=== PATIENT | male | born 1975 | race Caucasian/White ===

== ENCOUNTER 2023-07-21 11:47 | Emergency (ER) | payer MEDICAID ==
[~2023-07-21] VITALS: Ht 175.3 cm; Wt 80.0 kg
[2023-07-21 11:49] VITALS: O2SAT 100
[2023-07-21] MEDS ORDERED: ONDANSETRON HCL 4MG/2ML INJ IV STA (12:59)
[2023-07-21] MEDS ORDERED: MORPHINE SULFATE 4 MG/ML CPJ (NOT FOR IM USE) IV STA (12:59)
[2023-07-21] MEDS ORDERED: SODIUM CHLORIDE 0.9% 1,000 ML IV ONE (13:00)
[2023-07-21 13:50] LABS: BASOPHILS % 0.2 % (0.0-2.0); EOSINOPHILS % 2.5 % (0.0-5.0); HEMATOCRIT. 43.6 % (42.0-52.0); HEMOGLOBIN. 14.1 g/dL (14.0-18.0); LYMPHOCYTES % 29.5 % (20.0-50.0); MEAN CORPUSCULAR HEMOGLOBIN 31.6 pg (28.0-32.0); MEAN CORPUSCULAR HGB CONC 32.4 g/dL (31.0-37.0); MEAN CORPUSCULAR VOLUME 97.6 fL (80.0-94.0); MEAN PLATELET VOLUME 7.2 fl (7.4-10.4); MONOCYTES % 9.1 % (2.0-8.0); NEUTROPHILS % 58.7 % (40.0-76.0); PLATELET 181 x1000/uL (130-400); RED BLOOD CELL COUNT 4.47 mill/uL (4.7-6.1); RED CELL DISTRIBUTION WIDTH 14.8 % (11.6-14.6); WHITE BLOOD COUNT 6.3 x1000/uL (4.5-11.0)
[2023-07-21 14:10] LABS: ALANINE AMINOTRANSFERASE 336 IU/L (10-49); ALBUMIN 4.1 g/dL (3.2-4.8); ASPARTATE AMINOTRANSFERASE 143 IU/L (<34); BILIRUBIN TOTAL 0.5 mg/dL (0.1-1.0); CALCIUM 9.5 mg/dL (8.7-10.4); CARBON DIOXIDE 20 mEq/L (21-32); CHLORIDE 107 mEq/L (98-107); CREATININE 0.9 mg/dL (0.6-1.3); GLUCOSE 84 mg/dL (70-105); POTASSIUM 3.9 mEq/L (3.5-5.1); PROTEIN TOTAL 8.5 g/dL (6.0-8.3); SODIUM 137 mEq/L (136-145); UREA NITROGEN BLOOD 19 mg/dL (9-23)
[2023-07-21 14:12] LABS: TROPONIN I HIGH SENSITIVITY < 4 ng/L (3.0-53)
[2023-07-21] MEDS ORDERED: KETOROLAC 60MG/2ML VIAL IM ONE (15:00)
[2023-07-21] MEDS ORDERED: IBUP-2028 MT (16:04)
[2023-07-21] MEDS ORDERED: ONDA4TAB50 MT (16:04)
[2023-07-21] MEDS ORDERED: MORPHINE SULFATE 4 MG/ML CPJ (NOT FOR IM USE) IV NR (17:30)
[2023-07-21] MEDS ORDERED: ONDANSETRON HCL 4MG/2ML INJ IV NR (17:30)
[2023-07-21] MEDS ORDERED: KETOROLAC 30MG/ML VIAL IM NR (17:30)
[2023-07-21 18:47] VITALS: BP 122/81; PULSE 68; RESP 14; TEMP 97.7
== END 2023-07-21 18:53 | disposition home or self-care (01) ==
LOC: ER 12:29
DX: R10.9 Unspecified abdominal pain (principal); J45.909 Unspecified asthma, uncomplicated; Z87.442 Personal history of urinary calculi
CPT/HCPCS: 99285; 74176; 71045; 80053; 83690; 85025; 84484; 36415; 93005; 96372; J1885; J2405; J2270; J7030

== ENCOUNTER 2023-09-10 09:03 | Emergency (ER) | payer OTHER ==
[~2023-09-10] VITALS: Ht 170.2 cm; Wt 100.0 kg
[~2023-09-10 09:03] MED LIST: AMOX1TAB16 MT; DOXY100C5 MT; IBUP-2028 MT; ONDA4TAB50 MT
[2023-09-10 09:05] VITALS: TEMP 99.4; O2SAT 99
[2023-09-10 09:45] LABS: BASOPHILS % 0.1 % (0.0-2.0); EOSINOPHILS % 1.7 % (0.0-5.0); HEMATOCRIT. 39.2 % (42.0-52.0); HEMOGLOBIN. 13.4 g/dL (14.0-18.0); LYMPHOCYTES % 10.4 % (20.0-50.0); MEAN CORPUSCULAR HEMOGLOBIN 32.1 pg (28.0-32.0); MEAN CORPUSCULAR HGB CONC 34.2 g/dL (31.0-37.0); MEAN CORPUSCULAR VOLUME 93.8 fL (80.0-94.0); MEAN PLATELET VOLUME 6.8 fl (7.4-10.4); MONOCYTES % 4.6 % (2.0-8.0); NEUTROPHILS % 83.2 % (40.0-76.0); PLATELET 218 x1000/uL (130-400); RED BLOOD CELL COUNT 4.18 mill/uL (4.7-6.1); RED CELL DISTRIBUTION WIDTH 14.8 % (11.6-14.6); WHITE BLOOD COUNT 10.9 x1000/uL (4.5-11.0)
[2023-09-10 10:00] LABS: ALANINE AMINOTRANSFERASE 254 IU/L (10-49); ALBUMIN 4.8 g/dL (3.2-4.8); ASPARTATE AMINOTRANSFERASE 134 IU/L (<34); BILIRUBIN TOTAL 1.4 mg/dL (0.1-1.0); CALCIUM 9.2 mg/dL (8.7-10.4); CARBON DIOXIDE 25 mEq/L (21-32); CHLORIDE 104 mEq/L (98-107); CREATININE 0.9 mg/dL (0.6-1.3); GLUCOSE 106 mg/dL (70-105); POTASSIUM 3.9 mEq/L (3.5-5.1); PROTEIN TOTAL 8.9 g/dL (6.0-8.3); SODIUM 136 mEq/L (136-145); UREA NITROGEN BLOOD 18 mg/dL (9-23)
[2023-09-10 12:41] VITALS: BP 157/89; PULSE 84; RESP 22
[2023-09-10] MEDS: KETOROLAC 30MG/ML VIAL IV STA (12:41)
[2023-09-10] MEDS: SODIUM CHLORIDE 0.9% 1,000 ML IV ONE (12:41)
[2023-09-10] MEDS: ACETAMINOPHEN 325MG TABLET PO STA (12:41)
[2023-09-10 16:57] LABS: CLARITY URINE CLEAR (CLEAR); COLOR URINE YELLOW (YELLOW); GLUCOSE URINE NEGATIVE (NEGATIVE); KETONES URINE TRACE (NEGATIVE); LEUKOCYTE ESTERASE URINE TRACE (NEGATIVE); NITRITE URINE NEGATIVE (NEGATIVE); OCCULT BLOOD URINE NEGATIVE (NEGATIVE); PROTEIN URINE NEGATIVE (NEGATIVE); SPECIFIC GRAVITY URINE 1.016 (1.005-1.030)
[2023-09-10 17:22] LABS: BACTERIA URINE TRACE; RBC URINE 0-2 /hpf (0-2); SQUAMOUS EPITHELIAL CELL URINE RARE /lpf (RARE/1+); WBC URINE 0-2 /hpf (0-2)
[2023-09-10] MEDS ORDERED: IBUP-2029 MT (17:40)
== END 2023-09-10 11:00 | disposition home or self-care (01) ==
LOC: ER 09:15
DX: B34.9 Viral infection, unspecified (principal); K52.9 Noninfective gastroenteritis and colitis, unspecified; J06.9 Acute upper respiratory infection, unspecified; F17.200 Nicotine dependence, unspecified, uncomplicated; J45.909 Unspecified asthma, uncomplicated; Z20.822 Contact with and (suspected) exposure to COVID-19
CPT/HCPCS: 99285; 70450; 96374; 71045; 96361; 87426; 80053; 81003; 83690; 85025; 87804 ×2; 36415; 74176; J1885; J7030

== ENCOUNTER 2023-09-18 07:11 | Inpatient (IN) | payer OTHER ==
[~2023-09-18] VITALS: Ht 177.8 cm; Wt 100.7 kg
[~2023-09-18 07:11] MED LIST changes: +IBUP-2029 MT
[2023-09-18 07:44] LABS: HEMOGLOBIN. 13.2 g/dL (14.0-18.0); MEAN CORPUSCULAR HEMOGLOBIN 31.8 pg (28.0-32.0); MEAN CORPUSCULAR HGB CONC 33.9 g/dL (31.0-37.0); MEAN CORPUSCULAR VOLUME 93.8 fL (80.0-94.0); MEAN PLATELET VOLUME 6.5 fl (7.4-10.4); PLATELET 238 x1000/uL (130-400); RED BLOOD CELL COUNT 4.16 mill/uL (4.7-6.1); RED CELL DISTRIBUTION WIDTH 14.5 % (11.6-14.6); WHITE BLOOD COUNT 11.8 x1000/uL (4.5-11.0)
[2023-09-18 07:47] LABS: DIFFERENTIAL COMMENT 1
[2023-09-18 08:39] LABS: ALANINE AMINOTRANSFERASE 201 IU/L (10-49); ALBUMIN 4.7 g/dL (3.2-4.8); ASPARTATE AMINOTRANSFERASE 115 IU/L (<34); BILIRUBIN TOTAL 0.8 mg/dL (0.1-1.0); CALCIUM 9.5 mg/dL (8.7-10.4); CARBON DIOXIDE 24 mEq/L (21-32); CHLORIDE 106 mEq/L (98-107); CREATININE 1.1 mg/dL (0.6-1.3); GLUCOSE 114 mg/dL (70-105); POTASSIUM 3.7 mEq/L (3.5-5.1); PROTEIN TOTAL 8.8 g/dL (6.0-8.3); SODIUM 136 mEq/L (136-145); UREA NITROGEN BLOOD 23 mg/dL (9-23)
[2023-09-18 09:02] LABS: PLATELET ESTIMATE NORMAL
[2023-09-18] MEDS ORDERED: FUROSEMIDE 40MG/4ML VIAL IV ONE (09:45)
[2023-09-18 10:19] LABS: BASOPHILS % 0.2 % (0.0-2.0); EOSINOPHILS % 0.3 % (0.0-5.0); HEMATOCRIT. 40.4 % (42.0-52.0); HEMOGLOBIN. 13.4 g/dL (14.0-18.0); LYMPHOCYTES % 8.6 % (20.0-50.0); MEAN CORPUSCULAR HEMOGLOBIN 30.9 pg (28.0-32.0); MEAN CORPUSCULAR HGB CONC 33.2 g/dL (31.0-37.0); MEAN PLATELET VOLUME 6.7 fl (7.4-10.4); MONOCYTES % 7.2 % (2.0-8.0); NEUTROPHILS % 83.7 % (40.0-76.0); PLATELET 223 x1000/uL (130-400); PROTHROMBIN TIME 11.1 sec (9.6-11.0); RED BLOOD CELL COUNT 4.34 mill/uL (4.7-6.1); RED CELL DISTRIBUTION WIDTH 14.7 % (11.6-14.6); WHITE BLOOD COUNT 14.6 x1000/uL (4.5-11.0)
[2023-09-18 11:00] LABS: ALANINE AMINOTRANSFERASE 197 IU/L (10-49); ALBUMIN 4.4 g/dL (3.2-4.8); ASPARTATE AMINOTRANSFERASE 112 IU/L (<34); BILIRUBIN TOTAL 0.9 mg/dL (0.1-1.0); CALCIUM 9.2 mg/dL (8.7-10.4); CARBON DIOXIDE 23 mEq/L (21-32); CHLORIDE 104 mEq/L (98-107); CREATININE 1.1 mg/dL (0.6-1.3); GLUCOSE 113 mg/dL (70-105); POTASSIUM 3.8 mEq/L (3.5-5.1); SODIUM 135 mEq/L (136-145); UREA NITROGEN BLOOD 22 mg/dL (9-23)
[2023-09-18 11:04] LABS: TROPONIN I HIGH SENSITIVITY < 4 ng/L (3.0-53)
[2023-09-18] MEDS: SODIUM CHLORIDE 0.9% 1000ML BAG (SEPSIS BOLUS) IV ONE (11:33)
[2023-09-18] MEDS: CEFTRIAXONE 1GM/50ML 50 ML IV ONE (11:33)
[2023-09-18] MEDS: AZITHROMYCIN 500MG/250ML 250 ML IV ONE (12:30)
[2023-09-18] MEDS: KETOROLAC 30MG/ML VIAL IV ONE (12:34)
[2023-09-18 13:00] VITALS: BP 140/73; PULSE 127; RESP 16; TEMP 97
[2023-09-18 13:01] LABS: CLARITY URINE CLEAR (CLEAR); COLOR URINE DARK YELLOW (YELLOW); GLUCOSE URINE NEGATIVE (NEGATIVE); KETONES URINE TRACE (NEGATIVE); LEUKOCYTE ESTERASE URINE NEGATIVE (NEGATIVE); NITRITE URINE NEGATIVE (NEGATIVE); OCCULT BLOOD URINE NEGATIVE (NEGATIVE); PROTEIN URINE NEGATIVE (NEGATIVE); SPECIFIC GRAVITY URINE 1.026 (1.005-1.030)
[2023-09-18 13:52] LABS: *AMPHETAMINES SCREEN URINE NEGATIVE (NEGATIVE); *BARBITURATES SCREEN URINE NEGATIVE (NEGATIVE); *BENZODIAZEPINES SCREEN URINE NEGATIVE (NEGATIVE); *COCAINE SCREEN URINE NEGATIVE (NEGATIVE); CANNABINOID URINE SCREEN NEGATIVE (NEGATIVE); ECSTASY MDMA SCREEN URINE NEGATIVE (NEGATIVE); METHADONE URINE SCREEN Neg (NEGATIVE); OPIATES URINE SCREEN NEGATIVE (NEGATIVE); PHENCYCLIDINE URINE SCREEN NEGATIVE (NEGATIVE)
[2023-09-18] MEDS ORDERED: ACETAMINOPHEN 325MG TABLET PO PRN (18:45)
[2023-09-18] MEDS ORDERED: AZITHROMYCIN 250 MG in DEXT 5% WATER 250 ML IV SCH (18:45)
[2023-09-18] MEDS ORDERED: DOCUSATE SODIUM 100MG CAPSULE PO PRN (18:45)
[2023-09-18] MEDS ORDERED: CLONIDINE 0.1MG TABLET PO PRN (18:45)
[2023-09-18 20:00] VITALS: BP 100/58; PULSE 87; RESP 19; TEMP 100.6
[2023-09-18] MEDS: ACETAMINOPHEN 325MG TABLET PO PRN (20:17)
[2023-09-18] MEDS: SODIUM CHLORIDE 0.9% 1,000 ML IV SCH (20:22)
[2023-09-18] MEDS: CEFEPIME 1GM/50ML 50 ML IV SCH (20:22)
[2023-09-18] MEDS ORDERED: CEFEPIME HCL 1000MG VIAL IM SCH (21:00)
[2023-09-18 21:07] LABS: HEPATITIS A AB IGM NEGATIVE (Negative); HEPATITIS B CORE AB IGM NEGATIVE (Negative); HEPATITIS B SURFACE ANTIGEN NEGATIVE (Negative); HEPATITIS C AB REACTIVE (Pos) (Negative)
[2023-09-19] VITALS: BP 102/58; PULSE 74; RESP 19; TEMP 97.9
[2023-09-19 04:00] VITALS: BP 114/66; PULSE 74; RESP 18; TEMP 98.4
[2023-09-19 06:54] LABS: BASOPHILS % 0.2 % (0.0-2.0); EOSINOPHILS % 1.7 % (0.0-5.0); HEMATOCRIT. 35.9 % (42.0-52.0); HEMOGLOBIN. 12.3 g/dL (14.0-18.0); LYMPHOCYTES % 12.1 % (20.0-50.0); MEAN CORPUSCULAR HEMOGLOBIN 31.7 pg (28.0-32.0); MEAN CORPUSCULAR HGB CONC 34.2 g/dL (31.0-37.0); MEAN CORPUSCULAR VOLUME 92.7 fL (80.0-94.0); MEAN PLATELET VOLUME 7.1 fl (7.4-10.4); MONOCYTES % 7.6 % (2.0-8.0); NEUTROPHILS % 78.4 % (40.0-76.0); PLATELET 194 x1000/uL (130-400); RED BLOOD CELL COUNT 3.87 mill/uL (4.7-6.1); RED CELL DISTRIBUTION WIDTH 14.7 % (11.6-14.6); WHITE BLOOD COUNT 11.4 x1000/uL (4.5-11.0)
[2023-09-19 07:40] LABS: ALANINE AMINOTRANSFERASE 156 IU/L (10-49); ASPARTATE AMINOTRANSFERASE 85 IU/L (<34); BILIRUBIN TOTAL 1.3 mg/dL (0.1-1.0); CALCIUM 8.8 mg/dL (8.7-10.4); CARBON DIOXIDE 26 mEq/L (21-32); CHLORIDE 108 mEq/L (98-107); CREATININE 1.1 mg/dL (0.6-1.3); GLUCOSE 88 mg/dL (70-105); POTASSIUM 3.7 mEq/L (3.5-5.1); PROTEIN TOTAL 7.9 g/dL (6.0-8.3); SODIUM 139 mEq/L (136-145); UREA NITROGEN BLOOD 21 mg/dL (9-23)
[2023-09-19 12:00] VITALS: BP 130/69; PULSE 74; RESP 18; TEMP 97.9
[2023-09-19] MEDS: AZITHROMYCIN 500MG/250ML IV SCH (13:00)
[2023-09-19] MEDS: CEFEPIME 2GM/100ML 100 ML IV SCH ×2 (14:19→21:18)
[2023-09-19] MEDS: HYDROCODONE/ACETAMINOPHEN 5/325MG TABLET PO PRN (14:26)
[2023-09-19] MEDS ORDERED: NALOXONE HCL 0.4MG/ML VIAL IV PRN (15:00)
[2023-09-19 16:00] VITALS: BP 119/73; PULSE 82; RESP 18; TEMP 97.5
[2023-09-19 20:00] VITALS: BP 134/73; PULSE 79; RESP 16; TEMP 97.1
[2023-09-19] MEDS: IPRATROPIUM/ALBUTEROL 0.5-3(2.5)MG/3ML NEB HHN SCH (21:51)
[2023-09-19 21:52] VITALS: PULSE 76; RESP 20; O2SAT 99
[2023-09-20] VITALS (11 sets, daily range): BP systolic 101–141; BP diastolic 53–82; PULSE 64–83; RESP 18–20; TEMP 97.3–98.8; O2SAT 93–99
[2023-09-20 07:26] LABS: ALANINE AMINOTRANSFERASE 129 IU/L (10-49); ALBUMIN 3.7 g/dL (3.2-4.8); ASPARTATE AMINOTRANSFERASE 66 IU/L (<34); BILIRUBIN DIRECT 0.3 mg/dL (<=3.0); BILIRUBIN TOTAL 0.6 mg/dL (0.1-1.0); CALCIUM 8.4 mg/dL (8.7-10.4); CARBON DIOXIDE 23 mEq/L (21-32); CHLORIDE 107 mEq/L (98-107); GLUCOSE 99 mg/dL (70-105); POTASSIUM 3.8 mEq/L (3.5-5.1); PROTEIN TOTAL 6.7 g/dL (6.0-8.3); SODIUM 140 mEq/L (136-145)
[2023-09-20 07:30] LABS: BASOPHILS % 0.2 % (0.0-2.0); EOSINOPHILS % 2.7 % (0.0-5.0); HEMATOCRIT. 36.1 % (42.0-52.0); HEMOGLOBIN. 12.3 g/dL (14.0-18.0); LYMPHOCYTES % 17.1 % (20.0-50.0); MEAN CORPUSCULAR HEMOGLOBIN 31.9 pg (28.0-32.0); MEAN CORPUSCULAR HGB CONC 34.2 g/dL (31.0-37.0); MEAN CORPUSCULAR VOLUME 93.3 fL (80.0-94.0); MEAN PLATELET VOLUME 7.2 fl (7.4-10.4); MONOCYTES % 9.7 % (2.0-8.0); NEUTROPHILS % 70.3 % (40.0-76.0); PLATELET 192 x1000/uL (130-400); RED BLOOD CELL COUNT 3.87 mill/uL (4.7-6.1); RED CELL DISTRIBUTION WIDTH 14.9 % (11.6-14.6); WHITE BLOOD COUNT 8.1 x1000/uL (4.5-11.0)
[2023-09-21] VITALS (9 sets, daily range): BP systolic 94–134; BP diastolic 47–81; PULSE 61–87; RESP 18–20; TEMP 96.8–97.9; O2SAT 94–96
[2023-09-21] MEDS: ONDANSETRON HCL 4MG/2ML INJ IV PRN (13:10)
[2023-09-21] MEDS: IPRATROPIUM/ALBUTEROL 0.5-3(2.5)MG/3ML NEB HHN PRN (18:50)
[2023-09-22] VITALS: BP 120/58; PULSE 65; RESP 20; TEMP 96.3
[2023-09-22 04:00] VITALS: BP 116/74; PULSE 65; RESP 20; TEMP 97.9
[2023-09-22 08:00] VITALS: BP 101/53; PULSE 83; RESP 19; TEMP 98.6
[2023-09-22 12:00] VITALS: BP 97/45; PULSE 83; RESP 18; TEMP 98.1
[2023-09-22 16:00] VITALS: BP 140/82; PULSE 72; RESP 19; TEMP 95.9
[2023-09-22] MEDS: HYDROCODONE/ACETAMINOPHEN 5/325MG TABLET PO PRN (17:19)
[2023-09-22 20:00] VITALS: BP 113/71; PULSE 78; RESP 18; TEMP 97.9
[2023-09-22 20:18] LABS: TROPONIN I HIGH SENSITIVITY < 4 ng/L (3.0-53)
[2023-09-23] VITALS (7 sets, daily range): BP systolic 95–130; BP diastolic 47–71; PULSE 59–80; RESP 17–20; TEMP 97.7–98.6; O2SAT 98
[2023-09-24] VITALS: BP 97/61; PULSE 68; RESP 17; TEMP 98.1
[2023-09-24 04:00] VITALS: BP 127/64; PULSE 67; RESP 19; TEMP 98.1
[2023-09-24 06:07] LABS: ALANINE AMINOTRANSFERASE 160 IU/L (10-49); ALBUMIN 4.1 g/dL (3.2-4.8); ASPARTATE AMINOTRANSFERASE 98 IU/L (<34); BILIRUBIN DIRECT 0.2 mg/dL (<=3.0); BILIRUBIN TOTAL 0.6 mg/dL (0.1-1.0); PROTEIN TOTAL 7.7 g/dL (6.0-8.3)
[2023-09-24 08:00] VITALS: BP_SYST 133; BP_SYST 135; BP_DIAS 66; BP_DIAS 73; PULSE 64; PULSE 68; RESP 16; RESP 18; TEMP 96.4; TEMP 98.6
[2023-09-24 11:58] LABS: TROPONIN I HIGH SENSITIVITY < 4 ng/L (3.0-53)
[2023-09-24 12:00] VITALS: BP 130/68; PULSE 70; RESP 17; TEMP 96.8
[2023-09-24 16:00] VITALS: BP 133/73; PULSE 68; RESP 16; TEMP 97.5
[2023-09-24 20:00] VITALS: BP 124/66; PULSE 66; RESP 18; TEMP 98.1
[2023-09-25] VITALS (7 sets, daily range): BP systolic 112–137; BP diastolic 58–82; PULSE 66–102; RESP 18–19; TEMP 97.2–98.1
[2023-09-25 06:23] LABS: BASOPHILS % 0.2 % (0.0-2.0); HEMATOCRIT. 38.1 % (42.0-52.0); HEMOGLOBIN. 12.9 g/dL (14.0-18.0); LYMPHOCYTES % 24.1 % (20.0-50.0); MEAN CORPUSCULAR HEMOGLOBIN 31.7 pg (28.0-32.0); MEAN CORPUSCULAR HGB CONC 33.8 g/dL (31.0-37.0); MEAN CORPUSCULAR VOLUME 93.8 fL (80.0-94.0); MEAN PLATELET VOLUME 6.8 fl (7.4-10.4); MONOCYTES % 8.5 % (2.0-8.0); NEUTROPHILS % 58.2 % (40.0-76.0); PLATELET 236 x1000/uL (130-400); RED BLOOD CELL COUNT 4.06 mill/uL (4.7-6.1); RED CELL DISTRIBUTION WIDTH 14.2 % (11.6-14.6)
[2023-09-25 06:27] LABS: D-DIMER 1.19 mg/L FEU (<0.50); PARTIAL THROMBOPLASTIN TIME 27.2 sec (23.4-31.0)
[2023-09-25 06:36] LABS: PROTHROMBIN TIME 11.2 sec (9.6-11.0)
[2023-09-25 06:44] LABS: CALCIUM 9.7 mg/dL (8.7-10.4); CARBON DIOXIDE 27 mEq/L (21-32); CHLORIDE 104 mEq/L (98-107); CREATININE 0.9 mg/dL (0.6-1.3); GLUCOSE 80 mg/dL (70-105); POTASSIUM 4.4 mEq/L (3.5-5.1); SODIUM 137 mEq/L (136-145); UREA NITROGEN BLOOD 18 mg/dL (9-23)
[2023-09-25 06:45] LABS: AMYLASE 42 IU/L (30-118)
[2023-09-25 06:52] LABS: TROPONIN I HIGH SENSITIVITY < 4 ng/L (3.0-53)
[2023-09-26] VITALS: BP 112/69; PULSE 60; RESP 19; TEMP 97.9
[2023-09-26 04:00] VITALS: BP 109/72; PULSE 62; RESP 20; TEMP 98.7
[2023-09-26 08:00] VITALS: BP 122/68; PULSE 77; RESP 20; TEMP 98.1
[2023-09-26 12:00] VITALS: BP 125/57; PULSE 70; RESP 20; TEMP 97.9
[2023-09-26] MEDS: DIATR MEGLU/DIATRIZOATE SOLN 30ML PO SCH (12:28)
[2023-09-26 15:09] VITALS: BP 128/62; PULSE 68; TEMP 98.1; O2SAT 99
[2023-09-26 16:00] VITALS: BP 118/69; PULSE 68; RESP 18; TEMP 98
== END 2023-09-26 17:10 | disposition home or self-care (01) | DRG 720 ==
LOC: ER 07:11 → 6EST 11:08 → EDBEDREQ 11:11 → EDBEDREQSVC 11:11 → EDBEDREQ 11:12 → 8WST 09-22 21:44
PROVIDERS: ADMIT Internal Medicine; ATTEND Internal Medicine
DX: A41.9 Sepsis, unspecified organism (principal); J18.9 Pneumonia, unspecified organism; R18.8 Other ascites; K76.0 Fatty (change of) liver, not elsewhere classified; Z20.822 Contact with and (suspected) exposure to COVID-19; R65.20 Severe sepsis without septic shock; K80.20 Calculus of gallbladder without cholecystitis without obstruction; S30.1XXA Contusion of abdominal wall, initial encounter; N18.9 Chronic kidney disease, unspecified; J45.909 Unspecified asthma, uncomplicated; E80.6 Other disorders of bilirubin metabolism; B18.2 Chronic viral hepatitis C; E66.9 Obesity, unspecified; Z87.442 Personal history of urinary calculi; X58.XXXA Exposure to other specified factors, initial encounter; Y93.89 Activity, other specified; Y92.89 Other specified places as the place of occurrence of the external cause; Y99.8 Other external cause status; Z68.31 Body mass index [BMI] 31.0-31.9, adult
CPT/HCPCS: 36415; 71045; 71250; 74176; 76700; 80048; 80053; 80076; 80305; 81003; 82150; 83036; 83605; 83880; 84145; 84484; 85025; 85379; 86480; 86705; 86709; 87340; 87426; 87804; 93005; 93306; 93970; 94640; 99291; C1893; J0456; J0692; J0696; J1885; J2405; J7030; Q9963

== ENCOUNTER → 2023-10-07 | Emergency (ER) | payer MEDICAID, OTHER ==
[~2023-10-07] VITALS: Ht 180.3 cm; Wt 90.0 kg
[~2023-10-07] MED LIST changes: +CELE100C MT; +HYDROCODONE/ACETAMINOPHEN 10/325MG TABLET PO ONE; +KETOROLAC 30MG/ML VIAL IM ONE; +TRAM50TA3 MT
[2023-10-07 10:16] VITALS: TEMP 99.2; O2SAT 100
[2023-10-07 11:25] LABS: BASOPHILS % 0.4 % (0.0-2.0); EOSINOPHILS % 4.8 % (0.0-5.0); HEMATOCRIT. 39.6 % (42.0-52.0); HEMOGLOBIN. 13.6 g/dL (14.0-18.0); LYMPHOCYTES % 24.4 % (20.0-50.0); MEAN CORPUSCULAR HEMOGLOBIN 31.9 pg (28.0-32.0); MEAN CORPUSCULAR HGB CONC 34.4 g/dL (31.0-37.0); MEAN CORPUSCULAR VOLUME 92.7 fL (80.0-94.0); MEAN PLATELET VOLUME 7.2 fl (7.4-10.4); MONOCYTES % 6.8 % (2.0-8.0); NEUTROPHILS % 63.6 % (40.0-76.0); PLATELET 216 x1000/uL (130-400); RED BLOOD CELL COUNT 4.27 mill/uL (4.7-6.1); RED CELL DISTRIBUTION WIDTH 15.1 % (11.6-14.6); WHITE BLOOD COUNT 4.5 x1000/uL (4.5-11.0)
[2023-10-07 11:37] LABS: PARTIAL THROMBOPLASTIN TIME 27.3 sec (23.4-31.0); PROTHROMBIN TIME 11.3 sec (9.6-11.0)
[2023-10-07 11:40] LABS: ALANINE AMINOTRANSFERASE 226 IU/L (10-49); ALBUMIN 4.6 g/dL (3.2-4.8); ASPARTATE AMINOTRANSFERASE 137 IU/L (<34); BILIRUBIN TOTAL 1.2 mg/dL (0.1-1.0); CALCIUM 9.5 mg/dL (8.7-10.4); CARBON DIOXIDE 25 mEq/L (21-32); CHLORIDE 108 mEq/L (98-107); CREATININE 0.9 mg/dL (0.6-1.3); GLUCOSE 108 mg/dL (70-105); POTASSIUM 3.9 mEq/L (3.5-5.1); PROTEIN TOTAL 8.5 g/dL (6.0-8.3); SODIUM 139 mEq/L (136-145); UREA NITROGEN BLOOD 18 mg/dL (9-23)
[2023-10-07 11:42] LABS: TROPONIN I HIGH SENSITIVITY < 4 ng/L (3.0-53)
[2023-10-07 13:39] LABS: TROPONIN I HIGH SENSITIVITY < 4 ng/L (3.0-53)
[2023-10-07 17:00] VITALS: RESP 16
[2023-10-07] MEDS: KETOROLAC 30MG/ML VIAL IM NR (17:00)
[2023-10-07 17:55] VITALS: BP 140/80; PULSE 55
== END ==
LOC: ER 10:40
DX: R07.9 Chest pain, unspecified (principal); J45.909 Unspecified asthma, uncomplicated; Z87.442 Personal history of urinary calculi
CPT/HCPCS: 99285; 74176; 71045; 80053; 83880; 83605; 85025; 85610; 85730; 87040; 84484; 36415; 93005; 96372; J1885